=== PATIENT | female | born 1945 | race Caucasian/White ===

== ENCOUNTER → 2018-02-23 | Outpatient (CLI) | payer OTHER ==
[~2018-02-23] MED LIST: HYDR12.530 PO; OMEP20CA10 PO
== END | disposition home or self-care (01) ==
LOC: RAH 10:31
PROVIDERS: ATTEND Internal Medicine
DX: J06.9 Acute upper respiratory infection, unspecified (principal); R05 Cough; K44.9 Diaphragmatic hernia without obstruction or gangrene
CPT/HCPCS: 71046

== ENCOUNTER → 2018-03-11 | Outpatient (CLI) | payer OTHER ==
[~2018-03-11] MED LIST changes: +ALBUTEROL SULFATE 0.083% 2.5 MG/3 ML INH IH ONE
== END | disposition home or self-care (01) ==
LOC: RESP 08:55
PROVIDERS: ATTEND Internal Medicine
DX: R06.02 Shortness of breath (principal); Z87.09 Personal history of other diseases of the respiratory system
CPT/HCPCS: 94060; 94727; 94729

== ENCOUNTER → 2018-04-08 | Outpatient (CLI) | payer OTHER ==
[~2018-04-08] MED LIST changes: -ALBUTEROL SULFATE 0.083% 2.5 MG/3 ML INH IH ONE
== END | disposition home or self-care (01) ==
LOC: RAH 08:13
PROVIDERS: ATTEND Internal Medicine Gastroenterology
DX: K44.9 Diaphragmatic hernia without obstruction or gangrene (principal); R93.3 Abnormal findings on diagnostic imaging of other parts of digestive tract
CPT/HCPCS: 74240

== ENCOUNTER → 2018-05-20 | Outpatient (CLI) | payer MEDICARE ==
[~2018-05-20] MED LIST changes: +REGADENOSON 0.4 MG/5 ML PF SYG IVP SCH
== END | disposition home or self-care (01) ==
LOC: RAH 08:35
PROVIDERS: ATTEND Internal Medicine Cardiovascular Disease
DX: R07.9 Chest pain, unspecified (principal)
CPT/HCPCS: 78452; 93017; 96374; A9500 ×2; J2785

== ENCOUNTER → 2018-07-08 | Outpatient (CLI) | payer MEDICARE ==
[~2018-07-08] MED LIST changes: -REGADENOSON 0.4 MG/5 ML PF SYG IVP SCH
== END | disposition home or self-care (01) ==
LOC: RAH 07:56
PROVIDERS: ATTEND Internal Medicine
DX: R07.81 Pleurodynia (principal); K44.9 Diaphragmatic hernia without obstruction or gangrene
CPT/HCPCS: 71046; 71100

== ENCOUNTER → 2019-09-07 | Outpatient (CLI) | payer MEDICARE ==
[~2019-09-07] MED LIST changes: -OMEP20CA10 PO; +OMEP20CA12 PO
== END | disposition home or self-care (01) ==
LOC: RAH 09:35
PROVIDERS: ATTEND Internal Medicine
DX: K76.0 Fatty (change of) liver, not elsewhere classified (principal); N28.1 Cyst of kidney, acquired; R14.0 Abdominal distension (gaseous)
CPT/HCPCS: 76700

== ENCOUNTER → 2020-04-12 | Outpatient (CLI) | payer MEDICARE ==
[~2020-04-12] MED LIST changes: +IOHEXOL-350 75 ML VIAL IV ONE
== END | disposition home or self-care (01) ==
LOC: RAH 09:39
PROVIDERS: ATTEND Internal Medicine Gastroenterology
DX: K57.30 Diverticulosis of large intestine without perforation or abscess without bleeding (principal); N20.0 Calculus of kidney; N13.30 Unspecified hydronephrosis
CPT/HCPCS: 74178; Q9967

== ENCOUNTER → 2020-05-09 | Outpatient (CLI) | payer MEDICARE ==
[~2020-05-09] MED LIST changes: -IOHEXOL-350 75 ML VIAL IV ONE
== END | disposition home or self-care (01) ==
LOC: RAH 13:56
PROVIDERS: ATTEND Internal Medicine
DX: N20.0 Calculus of kidney (principal); N28.1 Cyst of kidney, acquired; N13.30 Unspecified hydronephrosis
CPT/HCPCS: 76770

== ENCOUNTER → 2023-03-12 | Outpatient (CLI) | payer MEDICARE | END | disposition home or self-care (01) | LOC: RAH 08:12 | PROVIDERS: ATTEND Internal Medicine | DX: N13.30 Unspecified hydronephrosis (principal); N23 Unspecified renal colic; N12 Tubulo-interstitial nephritis, not specified as acute or chronic; N28.9 Disorder of kidney and ureter, unspecified | CPT/HCPCS: 76770; 76856 ==

== ENCOUNTER → 2023-03-19 | Outpatient (CLI) | payer MEDICARE | END | disposition home or self-care (01) | LOC: RAH 10:16 | PROVIDERS: ATTEND Nurse Practitioner Family | DX: M79.671 Pain in right foot (principal); M79.672 Pain in left foot | CPT/HCPCS: 73630 ==

== ENCOUNTER → 2023-04-25 | Outpatient (CLI) | payer MEDICARE | END | disposition home or self-care (01) | LOC: RAH 07:43 | PROVIDERS: ATTEND Internal Medicine | DX: N60.01 Solitary cyst of right breast (principal); R92.331 Mammographic heterogeneous density, right breast; Z85.3 Personal history of malignant neoplasm of breast | CPT/HCPCS: 76641; 77065 ==

== ENCOUNTER → 2023-05-14 | Outpatient (CLI) | payer MEDICARE ==
[2023-05-14 09:17] LABS: INR <= 0.93 (0.85-1.15); PROTHROMBIN TIME 10.5 SEC (9.6-11.6)
[2023-05-14 09:18] LABS: PARTIAL THROMBOPLASTIN TIME 30.8 SEC (26.3-35.5)
== END | disposition home or self-care (01) ==
LOC: RAH 08:41
PROVIDERS: ATTEND Internal Medicine
DX: R22.2 Localized swelling, mass and lump, trunk (principal); E11.51 Type 2 diabetes mellitus with diabetic peripheral angiopathy without gangrene
CPT/HCPCS: 36415; 76942; 85610; 85730; 88305

== ENCOUNTER → 2023-06-23 | Outpatient (CLI) | payer MEDICARE | END | disposition home or self-care (01) | LOC: RAH 11:53 | PROVIDERS: ATTEND Nurse Practitioner Family | DX: M47.816 Spondylosis without myelopathy or radiculopathy, lumbar region (principal); M54.50 Low back pain, unspecified; R93.89 Abnormal findings on diagnostic imaging of other specified body structures; W19.XXXS Unspecified fall, sequela; X58.XXXS Exposure to other specified factors, sequela | CPT/HCPCS: 72100 ==

== ENCOUNTER → 2023-11-21 | Outpatient (CLI) | payer MEDICARE | END | disposition home or self-care (01) | LOC: RAH 14:35 | PROVIDERS: ATTEND Internal Medicine | DX: M54.50 Low back pain, unspecified (principal); M54.6 Pain in thoracic spine | CPT/HCPCS: 72072; 72100 ==

== ENCOUNTER → 2024-05-12 | Outpatient (CLI) | payer MEDICARE ==
--- NOTE | 2024-05-12 14:48 | HMCIMG ---
ULTRASOUND CHEST INDICATION: Malignant neoplasm. History of left mastectomy. COMPARISON: None FINDINGS/IMPRESSION: 6 x 2 x 7 mm benign (already biopsied) hypoechoic nodule along the left chest wall remains unchanged since 04/25/2023. 10 x 4 x 8 mm normal left axillary lymph node demonstrated. Indeterminate 6 x 7 x 8 mm slightly vascular smoothly-marginated hypoechoic nodule demonstrated at the 12:00 position without any surrounding edema or free fluid.
--- NOTE | 2024-05-13 10:53 | HMCIMG ---
PROCEDURE: MAMMO DX UNILATERAL RIGHT HISTORY: History of breast cancer COMPARISON: 01/26/2019 TECHNIQUE: Right breast digital diagnostic mammogram with CAD was performed. No additional views were obtained. FINDINGS: There are scattered areas of fibroglandular density. There is no evidence of a dominant mass, or suspicious microcalcification. There is no evidence of nipple retraction or skin thickening. IMPRESSION: 1. Stable right breast mammogram. BI-RADS: CATEGORY 2: BENIGN FINDINGS Recommend monthly self breast exam as well as annual clinical examination. A negative x-ray should not delay biopsy if a dominant or clinically suspicious mass is present, since 8-10% of cancers are not identified by mammography. Dense breasts particularly, may obscure an underlying neoplasm. Some of these may be detected clinically and therefore, clinical examination is an essential part of breast evaluation.
== END | disposition home or self-care (01) ==
LOC: RAH 13:30
PROVIDERS: ATTEND Internal Medicine
DX: R92.321 Mammographic fibroglandular density, right breast (principal); D24.2 Benign neoplasm of left breast; Z85.3 Personal history of malignant neoplasm of breast; Z90.12 Acquired absence of left breast and nipple
CPT/HCPCS: 76604; 77065

== ENCOUNTER → 2024-11-17 | Outpatient (CLI) | payer MEDICARE ==
--- NOTE | 2024-11-17 09:53 | HMCIMG ---
DOUBLE CONTRAST UPPER GI SERIES: Finding: The study was performed using provocative maneuvers After swallowing effervescent crystal and thick barium, there is no definite intrinsic or extrinsic lesion seen in the esophagus is a small hiatal hernia with grade 2 esophageal reflux.. The stomach is normal in size, shape, and configuration. The rugal folds appear to be normal. The duodenal bulb, duodenal sweep, and upper jejunum appear to be normal. There is a diverticulum seen in the proximal jejunum and the fourth portion of the duodenum. Fluoroscopy time: 1.0 minutes . IMPRESSION: Small hiatal hernia with grade 2 esophageal reflux Duodenum and proximal jejunal diverticulum Otherwise NORMAL DOUBLE CONTRAST UPPER GI SERIES.
== END | disposition home or self-care (01) ==
LOC: RAH 07:58
PROVIDERS: ATTEND Internal Medicine Gastroenterology
DX: K21.9 Gastro-esophageal reflux disease without esophagitis (principal); K57.10 Diverticulosis of small intestine without perforation or abscess without bleeding; K44.9 Diaphragmatic hernia without obstruction or gangrene
CPT/HCPCS: 74240

== ENCOUNTER → 2024-12-02 | Outpatient (CLI) | payer MEDICARE ==
[~2024-12-02] MED LIST changes: +IOHEXOL-350 75 ML VIAL IV ONE
--- NOTE | 2024-12-02 12:53 | HMCIMG ---
EXAM: CT Abdomen with and without IV contrast CLINICAL HISTORY: Other specified disorders of kidney and ureter TECHNIQUE: Axial computed tomography images of the abdomen and pelvis with and without intravenous contrast. CONTRAST: with and without intravenous contrast. COMPARISON: None provided. FINDINGS: LUNG BASES: The lung bases appear clear. No pleural effusions are seen. LIVER: Unremarkable except for right hepatic lobe cyst. GALLBLADDER AND BILE DUCTS: Post-cholecystectomy status with surgical clips in situ. No biliary ductal dilatation is evident. PANCREAS: Unremarkable. SPLEEN: Unremarkable. ADRENAL GLANDS: Unremarkable. KIDNEYS, URETERS, AND BLADDER: Few tiny simple cortical cysts in the left kidney. There is no hydronephrosis or hydroureter. No urinary calculi are seen. STOMACH AND BOWEL: Visualized bowel is unremarkable. Apparent soft tissue of the region of the gastric fundus and GE junction. Findings could be due to underdistention, however lesion in this area not excluded. Direct visualization recommended when further clinically feasible. LYMPH NODES: No lymphadenopathy is evident. VASCULATURE: No evidence of abdominal aortic aneurysm. BONES: No aggressive appearing osseous lesion. No acute osseous pathology evident. Multilevel degenerative changes in the visualized spine. IMPRESSION: No acute findings. Apparent soft tissue of the region of the gastric fundus and GE junction. Findings could be due to underdistention, however lesion in this area not excluded. Direct visualization recommended when further clinically feasible This /[place]
== END | disposition home or self-care (01) ==
LOC: RAH 09:08
PROVIDERS: ATTEND Internal Medicine
DX: N28.1 Cyst of kidney, acquired (principal); M47.816 Spondylosis without myelopathy or radiculopathy, lumbar region; R93.5 Abnormal findings on diagnostic imaging of other abdominal regions, including retroperitoneum; N28.89 Other specified disorders of kidney and ureter; Z90.49 Acquired absence of other specified parts of digestive tract
CPT/HCPCS: 74170; Q9967